=== PATIENT | female | born 2000 | race African-American/Black ===

== ENCOUNTER 2019-01-13 21:39 | Emergency (ER) | payer MEDICAID ==
[~2019-01-13] VITALS: Ht 165.1 cm; Wt 70.0 kg
[2019-01-13 21:51] VITALS: BP 126/76
== END 2019-01-13 23:00 | disposition left against medical advice (07) ==
LOC: ER 21:39
DX: R11.2 Nausea with vomiting, unspecified (principal); Z53.21 Procedure and treatment not carried out due to patient leaving prior to being seen by health care provider